=== PATIENT | female | born 1935 | race Caucasian/White ===

== ENCOUNTER 2017-07-19 08:50 | Day surgery (SDC) | payer OTHER ==
[2017-07-19] MEDS ORDERED: LR 1,000 ML IV ONE (09:02)
--- NOTE | 2017-07-19 09:35 | PDGENHP ---
History & Physical Chief Complaint: Screening colonscopy History of Present Illness: PHx colon polyps Pertinent Past, Social, Family History: Negative Relevant Physical Exam: lungs clear. COR normal Cardiorespiratory Assessment: Normal. Proceed with colonoscopy
--- NOTE | 2017-07-19 10:05 | PDANEPAE ---
ANE History of Present Illness h/o polyps ANE Past Medical History - Cardiovascular History Hx Hypertension: No Hx Arrhythmias: No Hx Chest Pain: No Hx Coronary Artery / Peripheral Vascular Disease: No Hx CHF / Valvular Disease: No Hx Palpitations: No Cardiovascular History Comment: on furosemide due to leg swelling - Pulmonary History Hx COPD: No Hx Asthma/Reactive Airway Disease: No Hx Recent Upper Respiratory Infection: No Hx Oxygen in Use at Home: No Hx Sleep Apnea: No Sleep Apnea Screening Result - Last Documented: Negative Pulmonary History Comment: seasonal allergies - Neurologic History Hx Cerebrovascular Accident: No Hx Seizures: No Hx Dementia: No - Endocrine History Hx Diabetes: No - Renal History Hx Renal Disorders: No Renal History Comment: urgency at night wears depends at noc as needed - Liver History Hx Hepatic Disorders: No - Neurological & Psychiatric Hx Hx Neurological and Psychiatric Disorders: No - Cancer History Hx Cancer: No - Congenital Disorder History Hx Congenital Disorders: No - GI History Hx Gastrointestinal Disorders: Yes Gastrointestinal History Comment: occassional constipation uses diet to help, stool softner. Mild diverticulitis - Other Health History Other Health History: Joint arthritis. - Chronic Pain History Chronic Pain: No - Surgical History Prior Surgeries: tonsillectomy at 4 years old. 3 breast biopsies. complete hysterectomy. knee scope on right knee 18 years ago. Bilat [place]. cataracts removed from bilateral eyes. 12/23-R knee plasty ANE Review of Systems Review of Systems: - Exercise capacity METS (RN): 4 METS ANE Patient History - Allergies Allergies/Adverse Reactions: amoxicillin [Amoxicillin] Allergy (Verified 07/16/17 16:15) Rash Sulfa (Sulfonamide Antibiotics) Allergy (Verified 07/16/17 16:15) Other-Enter Comments - Home Medications Home Medications: Fluticasone Nasal [Flonase Nasal [place]] 06/03/14 [Last Taken 07/17/17] RX: Potassium Cl [Klor-Con 10 meq (RX)] 06/03/14 [Last Taken 07/19/17] Furosemide 07/16/17 [Last Taken 07/18/17] - NPO status NPO Since - Liquids (Date): 07/19/17 NPO Since - Liquids (Time): 08:00 NPO Since - Solids (Date): 07/18/17 NPO Since - Solids (Time): 12:00 - Smoking Hx Smoking Status: Never smoked - Family Anes Hx Family Hx Anesthesia Complications: none ANE Labs/Vital Signs - Vital Signs Blood Pressure: 108/62 Heart Rate: 74 Respiratory Rate: 16 O2 Sat (%): 95 Height: 157.48 cm Weight: 61.235 kg ANE Physical Exam - Airway Neck exam: FROM Mallampati Score: Class 1 Mouth exam: normal dental/mouth exam - Pulmonary Pulmonary: no respiratory distress - Cardiovascular Cardiovascular: regular rate and rhythym - ASA Status ASA Status: II ANE Anesthesia Plan Total IV Anesthesia: Yes
[2017-07-19] MEDS ORDERED: PROPOFOL 200 MG/20 ML VIAL ONE (10:06)
[2017-07-19] MEDS ORDERED: NALOXONE HCL 0.4 MG/ML INJ IVP PRN (10:19)
[2017-07-19] MEDS ORDERED: PHENYLEPHRINE HCL 100 MCG/ML SYR ONE (10:30)
--- NOTE | 2017-07-19 10:36 | POSTANESTH ---
Post Anesthetic Evaluation Cardiovascular Status: Normal, Stable Respiratory Status: Normal, Stable Level of Consciousness/Mental Status: Can Participate in Eval Pain Control: Adequate, Prn Tx Ordered Nausea/Vomiting Control: Adequate, Prn Tx Ordered Complications Possibly Related to Anesthesia: None Noted
--- NOTE | 2017-07-19 10:40 | GIREPORT ---
[facility] - Endoscopy Department Patient Name: Krupa Rico Procedure Date: 07/19/2017 9:56 AM Patient Type: Outpatient Attending / ER Physician: Ulises Seth MD Procedure: Colonoscopy Indications: High risk colon cancer surveillance: Personal history of colonic polyps Providers: Ulises Seth MD Medicines: Sedation Required Anesthesia Staff Assistance Complications: No immediate complications. Description of Procedure: After obtaining informed consent, the scope was passed under direct vis ion. Throughout the procedure, the patient's blood pressure, pulse, and oxyg en saturations were monitored continuously. The Colonoscope was introduced through the anus and advanced to the cecum, identified by appendiceal orifice and ileocecal valve. The colonoscopy was performed without difficulty. The patient tolerated the procedure well. The quality of th e bowel preparation was good. The ileocecal valve and the rectum were photographed. Findings: Multiple small and large-mouthed diverticula were found in the sigmoid colon and descending colon. A 4 mm polyp was found in the transverse colon. The polyp was sessile. The polyp was removed with a cold biopsy forceps. Resection and retrieval w ere complete. A 4 mm polyp was found in the descending colon. The polyp was sessile. The polyp was removed with a cold biopsy forceps. Resection and retrieval w ere complete. A diffuse area of moderate melanosis was found in the entire colon. Mor e prominent melenosi in the right colon as compared to the left colon. The exam was otherwise without abnormality on direct and retroflexion v iews. Estimated Blood Loss: Estimated blood loss: none. Post Op Diagnosis: - Diverticulosis in the sigmoid colon and in the descending colon. - One 4 mm polyp in the transverse colon, removed with a cold biopsy forceps. Resected and retrieved. - One 4 mm polyp in the descending colon, removed with a cold biopsy forceps. Resected and retrieved. - Melanosis in the colon. - The examination was otherwise normal on direct and retroflexion views . Recommendation: - Patient has a contact number available for emergencies. The signs and symptoms of potential delayed complications were discussed with the pat ient. Return to normal activities tomorrow. Written discharge instructions we re provided to the patient. - High fiber diet. - Avoid stimulant laxatives or herbal teas/supplements that contain sen na or cascara. - Continue present medications. - Await pathology results. - No repeat colonoscopy due to age. - Thank you for allowing me to participate in the care of your patient. Attending Participation: I personally performed the entire procedure. Ulises Seth MD Ulises Seth MD 07/19/2017 10:39:22 AM This report has been signed electronicallyUlises Seth MD Number of Addenda: 0 Note Initiated On: 07/19/2017 9:56 AM Total Procedure Duration Time 0 hours 17 minutes 18 seconds [email or web address]
[2017-07-19 10:58] VITALS: BP 119/52
== END 2017-07-19 11:30 | disposition home or self-care (01) ==
LOC: FSGY 08:50
PROVIDERS: ATTEND Internal Medicine Gastroenterology
PROC: 0DBE8ZX Excision of Large Intestine, Via Natural or Artificial Opening Endoscopic, Diagnostic (ICD-10-PCS; principal; 2017-07-19 10:15)
DX: Z12.11 Encounter for screening for malignant neoplasm of colon (principal); D12.6 Benign neoplasm of colon, unspecified; K63.89 Other specified diseases of intestine; K57.30 Diverticulosis of large intestine without perforation or abscess without bleeding; Z87.19 Personal history of other diseases of the digestive system
CPT/HCPCS: J2370; J2704